=== PATIENT | male | born 1985 | race Hispanic/Latino ===

== ENCOUNTER 2024-02-10 19:41 | Emergency (ER) | payer SELFPAY ==
[~2024-02-10] VITALS: Ht 175.3 cm; Wt 80.7 kg
[2024-02-10 19:51] VITALS: PULSE 85; RESP 18; TEMP 98; O2SAT 97
[2024-02-10] MEDS ORDERED: IBUPROFEN600 MG PO (20:09)
[2024-02-10] MEDS ORDERED: CYCLOBENZAPRINE5 MG PO (20:10)
[2024-02-10] MEDS: CYCLOBENZAPRINE HCL 10 MG TAB PO ONE (20:15)
[2024-02-10] MEDS: IBUPROFEN 600 MG TAB PO STA (20:16)
== END 2024-02-10 20:19 | disposition home or self-care (01) ==
LOC: FSED 19:44
DX: M54.2 Cervicalgia (principal); M26.621 Arthralgia of right temporomandibular joint; F17.210 Nicotine dependence, cigarettes, uncomplicated
CPT/HCPCS: 99283